=== PATIENT | male | born 2000 | race Caucasian/White ===

== ENCOUNTER 2024-09-07 18:38 | Emergency (ER) | payer BC ==
[~2024-09-07] VITALS: Ht 175.3 cm; Wt 76.8 kg
[2024-09-07 18:46] VITALS: PULSE 76; RESP 16; TEMP 98.9; O2SAT 98
[2024-09-07] MEDS ORDERED: CYCLOBENZAPRINE5 MG PO (18:57)
== END 2024-09-07 19:06 | disposition home or self-care (01) ==
LOC: FSED 18:41
DX: M54.50 Low back pain, unspecified (principal); X50.1XXA Overexertion from prolonged static or awkward postures, initial encounter; Y93.H1 Activity, digging, shoveling and raking; Y92.89 Other specified places as the place of occurrence of the external cause
CPT/HCPCS: 99283

== ENCOUNTER 2024-10-09 20:11 | Emergency (ER) | payer BC ==
[~2024-10-09] VITALS: Ht 175.3 cm; Wt 74.8 kg
[~2024-10-09 20:11] MED LIST: CYCLOBENZAPRINE5 MG PO
[2024-10-09 20:15] VITALS: PULSE 92; RESP 16; TEMP 98.6
[2024-10-09] MEDS ORDERED: TYLENOL325 MG PO (20:38)
[2024-10-09] MEDS ORDERED: DIPHENHYDRAMINE25 M2 PO (20:38)
[2024-10-09] MEDS ORDERED: CEFDINIR300 MG PO (20:38)
[2024-10-09] MEDS: PREDNISONE 20 MG TAB PO ONE (21:01)
[2024-10-09] MEDS: IBUPROFEN 600 MG TAB PO ONE (21:01)
[2024-10-09] MEDS: CEFTRIAXONE 1 GM VIAL IM ONE (21:01)
[2024-10-09 21:18] VITALS: BP 128/58; PULSE 89; RESP 18; TEMP 98.6; O2SAT 97
== END 2024-10-09 21:18 | disposition home or self-care (01) ==
LOC: FSED 20:14
DX: J02.9 Acute pharyngitis, unspecified (principal); F17.210 Nicotine dependence, cigarettes, uncomplicated
CPT/HCPCS: 96372; 99283; J0696; J7512

== ENCOUNTER 2024-12-07 20:12 | Emergency (ER) | payer BC ==
[~2024-12-07] VITALS: Ht 175.3 cm; Wt 77.1 kg
[~2024-12-07 20:12] MED LIST changes: +CEFDINIR300 MG PO; +DIPHENHYDRAMINE25 M2 PO; +TYLENOL325 MG PO
[2024-12-07 20:35] VITALS: PULSE 82; RESP 18; TEMP 98.5
[2024-12-07] MEDS ORDERED: VENTOLIN HFA18 GM INH (20:49)
[2024-12-07 21:06] VITALS: BP 134/61; PULSE 82; RESP 18; TEMP 98.5; O2SAT 95
== END 2024-12-07 21:06 | disposition home or self-care (01) ==
LOC: FSED 20:49
DX: Z76.0 Encounter for issue of repeat prescription (principal); J45.909 Unspecified asthma, uncomplicated; K59.00 Constipation, unspecified
CPT/HCPCS: 99282

== ENCOUNTER 2024-12-16 16:43 | Emergency (ER) | payer BC ==
[~2024-12-16] VITALS: Ht 175.3 cm; Wt 76.3 kg
[~2024-12-16 16:43] MED LIST changes: +VENTOLIN HFA18 GM INH
[2024-12-16] MEDS ORDERED: OVIDREL250 MCG/0. (16:53)
[2024-12-16 17:50] VITALS: PULSE 59; RESP 16; TEMP 98.2; O2SAT 97
[2024-12-16] MEDS ORDERED: POLYETHYLENE GL17 GM PO (17:52)
== END 2024-12-16 17:57 | disposition home or self-care (01) ==
LOC: FSED 16:46
DX: K59.00 Constipation, unspecified (principal); R10.32 Left lower quadrant pain
CPT/HCPCS: 74176; 99283

== ENCOUNTER 2025-03-26 19:14 | Emergency (ER) | payer BC ==
[~2025-03-26] VITALS: Ht 175.3 cm; Wt 73.5 kg
[~2025-03-26 19:14] MED LIST changes: +OVIDREL250 MCG/0.; +POLYETHYLENE GL17 GM PO
[2025-03-26] MEDS: SODIUM CHLORIDE 0.9% 1000ML 1,000 ML IV ONE (20:03)
[2025-03-26 20:56] VITALS: PULSE 70; RESP 18; TEMP 98.7
[2025-03-26 20:58] VITALS: BP 109/65; PULSE 70; RESP 18; TEMP 98.7; O2SAT 97
== END 2025-03-26 21:00 | disposition home or self-care (01) ==
LOC: FSED 19:42
DX: T67.5XXA Heat exhaustion, unspecified, initial encounter (principal); E86.0 Dehydration; R09.89 Other specified symptoms and signs involving the circulatory and respiratory systems; R11.0 Nausea
CPT/HCPCS: 80048; 85025; 99284; J7030

== ENCOUNTER 2025-03-28 14:12 | Emergency (ER) | payer BC ==
[~2025-03-28] VITALS: Ht 175.3 cm; Wt 72.6 kg
[2025-03-28] MEDS ORDERED: THERAFLU NIGHT1 EAC5 PO (14:53)
[2025-03-28] MEDS ORDERED: IBUPROFEN800 MG PO (14:53)
[2025-03-28 15:21] VITALS: PULSE 87; RESP 18; TEMP 99.3; O2SAT 98
== END 2025-03-28 15:21 | disposition home or self-care (01) ==
LOC: FSED 14:32
DX: U07.1 COVID-19 (principal); B34.9 Viral infection, unspecified
CPT/HCPCS: 0223U; 87400; 99283

== ENCOUNTER 2025-05-16 18:41 | Emergency (ER) | payer BC ==
[~2025-05-16] VITALS: Ht 175.3 cm; Wt 73.0 kg
[~2025-05-16 18:41] MED LIST changes: +IBUPROFEN800 MG PO; +THERAFLU NIGHT1 EAC5 PO
[2025-05-16 19:30] VITALS: PULSE 75; RESP 15; TEMP 98.1
[2025-05-16] MEDS ORDERED: CLOBETASOL PROP15 G1 TOP (20:04)
[2025-05-16 20:53] VITALS: BP 118/63; PULSE 68; RESP 15; TEMP 98.1; O2SAT 100
== END 2025-05-16 20:30 | disposition home or self-care (01) ==
LOC: FSED 19:00
DX: L30.9 Dermatitis, unspecified (principal)
CPT/HCPCS: 99283